=== PATIENT | male | born 1950 | race African-American/Black ===

== ENCOUNTER 2017-09-05 21:48 | Emergency (ER) | payer SELFPAY ==
[~2017-09-05] VITALS: Ht 188 cm; Wt 79.8 kg
--- NOTE | 2017-09-05 22:00 | Emergency Room Report ---
History of Present Illness General Chief Complaint: Chest Pain Source: Patient, EMS Present Illness HPI Patient has by paramedics for initially complaining of chest pain Upon arrival the patient denies any chest pain he reports that he is hungry and that he has not eaten for 3 days Denies any vomiting Denies any abdominal pain denies any fevers or chills Patient has psychiatric history and is on trazodone and Seroquel he reports that he gets his medications from a clinic Denies any homicidal or suicidal thoughts Denies any back or flank pain Allergies: Coded Allergies: HALOPERIDOL (Verified Allergy, Unknown, 09/05/17) PENICILLINS (Verified Allergy, Unknown, 09/05/17) Patient History Past Medical History: see triage record Pertinent Family History: none Reviewed Nursing Documentation: PMH: Agreed; PSxH: Agreed Nursing Documentation-PMH Hx Cardiac Problems: Yes - CHF Hx Hypertension: Yes Hx Diabetes: Yes Review of Systems All Other Systems: negative except mentioned in HPI Physical Exam Vital Signs Date Time Temp Pulse Resp B/P (MAP) Pulse Ox O2 Delivery O2 Flow Rate FiO2 09/05/17 21:46 98.2 82 18 136/78 96 Room Air 98.2 Sp02 EP Interpretation: reviewed, normal General Appearance: well appearing, no apparent distress Head: normocephalic, atraumatic Eyes: bilateral eye PERRL, bilateral eye EOMI ENT: hearing grossly normal, TMs + canals normal, uvula midline, other - A dentureless Neck: full range of motion, supple, no meningismus, no bony tend Respiratory: lungs clear, normal breath sounds, no rhonchi, no respiratory distress, no retraction, no accessory muscle use Cardiovascular #1: normal peripheral pulses, regular rate, rhythm, no edema, no gallop, no JVD, no murmur Gastrointestinal: normal bowel sounds, non tender, soft, no mass, no organomegaly, non-distended, no guarding, no hernia, no pulsatile mass, no rebound Genitourinary: no CVA tenderness Musculoskeletal: swelling - To his right hand, patient reports that he broke his hand 6 weeks ago Neurologic: oriented x3, responsive, retail key holder III-XII nml as tested, motor strength/ tone normal, sensory intact Psychiatric: mood/affect normal Skin: normal color, no rash, warm/dry, palpation normal Lymphatic: normal inspection, no adenopathy Medical Decision Making Diagnostic Impression: Primary Impression: Chest pain ER Course Patient is a fairly complex patient with multiple differential to consideration including but not limited to cardiac cardiopulmonary and vascular emergencies Patient's description of the pain does not sound necessarily cardiac however given the complaints extensive workup was initiated Patient also was more concerned regarding being hungry and requesting food Patient continues to rest comfortably Baseline blood work is appropriate and patient stable for close outpatient follow-up Labs Test 09/05/17 22:00 White Blood Count 6.6 K/UL (4.8-10.8) Red Blood Count 3.93 M/UL (4.70-6.10) Hemoglobin 11.6 G/DL (14.2-18.0) Hematocrit 35.5 % (42.0-52.0) Mean Corpuscular Volume 90 FL (80-99) Mean Corpuscular Hemoglobin 29.4 PG (27.0-31.0) Mean Corpuscular Hemoglobin Concent 32.5 G/DL (32.0-36.0) Red Cell Distribution Width 13.1 % (11.6-14.8) Platelet Count 218 K/UL (150-450) Mean Platelet Volume 9.0 FL (6.5-10.1) Neutrophils (%) (Auto) 60.2 % (45.0-75.0) Lymphocytes (%) (Auto) 25.4 % (20.0-45.0) Monocytes (%) (Auto) 11.4 % (1.0-10.0) Eosinophils (%) (Auto) 0.9 % (0.0-3.0) Basophils (%) (Auto) 2.1 % (0.0-2.0) Sodium Level 137 MMOL/L (136-145) Potassium Level 4.5 MMOL/L (3.5-5.1) Chloride Level 101 MMOL/L (98-107) Carbon Dioxide Level 28 MMOL/L (21-32) Anion Gap 8 mmol/L (5-15) Blood Urea Nitrogen 15 mg/dL (7-18) Creatinine 1.4 MG/DL (0.55-1.30) Estimat Glomerular Filtration Rate 50.7 mL/min (>60) Glucose Level 254 MG/DL (74-106) Calcium Level 9.2 MG/DL (8.5-10.1) Total Bilirubin 0.4 MG/DL (0.2-1.0) Aspartate Amino Transf (AST/SGOT) 21 U/L (15-37) Alanine Aminotransferase (ALT/SGPT) 24 U/L (12-78) Alkaline Phosphatase 126 U/L (46-116) Total Creatine Kinase 234 U/L (26-308) Creatine Kinase MB 4.1 NG/ML (0.0-3.6) Creatine Kinase MB Relative Index 1.7 Troponin I 0.000 ng/mL (0.000-0.056) Total Protein 7.8 G/DL (6.4-8.2) Albumin 3.3 G/DL (3.4-5.0) Globulin 4.5 g/dL Albumin/Globulin Ratio 0.7 (1.0-2.7) EKG Diagnostic Results Rate: normal Rhythm: NSR ST Segments: no acute changes Rhythm Strip Diag. Results EP Interpretation: yes Rate: 85 Rhythm: NSR, no PVC's, no ectopy Chest X-Ray Diagnostic Results Chest X-Ray Diagnostic Results : Chest X-Ray Ordered: Yes # of Views/Limited/Complete: 1 View Indication: Chest Pain EP Interpretation: Yes Interpretation: no consolidation, no effusion, no pneumothorax Impression: No acute disease Electronically Signed by: Michele Marmolejo DO Last Vital Signs Date Time Temp Pulse Resp B/P (MAP) Pulse Ox O2 Delivery O2 Flow Rate FiO2 09/05/17 21:46 98.2 82 18 136/78 96 Room Air 98.2 Status: improved Disposition: HOME, SELF-CARE Condition: Improved Additional Instructions: Patient is provided with the discharge instructions notified to follow up with primary doctor in the next 2-3 days otherwise return to the er with any worsening symptoms. Please note that this report is being documented using [employer] technology. This can lead to erroneous entry secondary to incorrect interpretation by the dictating instrument. Michele Marmolejo DO September 05, 2017 22:00
[2017-09-05] MEDS: TraZODone 50mg tab ORAL ONE (22:22)
[2017-09-05 22:29] LABS: BASOPHILS % (AUTO) 2.1 % (0.0-2.0); EOSINOPHILS % (AUTO) 0.9 % (0.0-3.0); HEMATOCRIT 35.5 % (42.0-52.0); HEMOGLOBIN 11.6 G/DL (14.2-18.0); LYMPHOCYTES % (AUTO) 25.4 % (20.0-45.0); MEAN CORPUSCULAR VOLUME 90 FL (80-99); MONOCYTES % (AUTO) 11.4 % (1.0-10.0); NEUTROPHILS % (AUTO) 60.2 % (45.0-75.0); PLATELET COUNT 218 K/UL (150-450); RED BLOOD COUNT 3.93 M/UL (4.70-6.10); RED CELL DISTRIBUTION WIDTH 13.1 % (11.6-14.8); WHITE BLOOD COUNT 6.6 K/UL (4.8-10.8)
[2017-09-05 22:31] LABS: ANION GAP 8 mmol/L (5-15); BLOOD UREA NITROGEN 15 mg/dL (7-18); CALCIUM 9.2 MG/DL (8.5-10.1); CARBON DIOXIDE 28 MMOL/L (21-32); CHLORIDE 101 MMOL/L (98-107); CREATININE 1.4 MG/DL (0.55-1.30); POTASSIUM 4.5 MMOL/L (3.5-5.1); SODIUM 137 MMOL/L (136-145)
[2017-09-05 22:44] LABS: ALANINE AMINOTRANSFERASE 24 U/L (12-78); ALBUMIN 3.3 G/DL (3.4-5.0); ALBUMIN/GLOBULIN RATIO 0.7 (1.0-2.7); ALKALINE PHOSPHATASE 126 U/L (46-116); ASPARTATE AMINO TRANSFERASE 21 U/L (15-37); BILIRUBIN,TOTAL 0.4 MG/DL (0.2-1.0); CKMB 4.1 NG/ML (0.0-3.6); CREATINE KINASE 234 U/L (26-308)
[2017-09-06 01:21] VITALS: BP 136/78
--- NOTE | 2017-09-06 10:41 | Diagnostic Imaging Report ---
Indication: Chest pain Comparison: None A single view chest radiograph was obtained. Findings: There is pleural calcification present on the right side. Small focus of calcium also present and suspected at the left lung base. No infiltrate seen. Lung volumes are low. Heart size is normal. Bones are unremarkable. IMPRESSION: Pleural cast patient noted bilaterally nonspecific in nature.
--- NOTE | 2017-09-06 14:02 | Cardiology Report ---
APPROVED REPORT EKG Measurement Heart [id number] Normal sinus rhythm Normal ECG
== END 2017-09-06 02:07 | disposition home or self-care (01) ==
LOC: EDBD 21:48 → EMR 22:00
DX: R07.9 Chest pain, unspecified (principal); E11.9 Type 2 diabetes mellitus without complications; I11.0 Hypertensive heart disease with heart failure; I50.9 Heart failure, unspecified; Z88.8 Allergy status to other drugs, medicaments and biological substances; Z88.0 Allergy status to penicillin
CPT/HCPCS: 36415; 71045; 80053; 82550; 82553; 84484; 85025; 93005; 99283

== ENCOUNTER 2017-09-06 03:28 | Emergency (ER) | payer SELFPAY ==
[~2017-09-06] VITALS: Ht 170.2 cm; Wt 90.7 kg
--- NOTE | 2017-09-06 03:32 | Emergency Room Report ---
History of Present Illness General Chief Complaint: Behavioral Complaint Source: Patient Present Illness HPI Patient was recently seen here by myself Patient had complained of chest pain midsternal Extensive workup was negative and patient has been discharged home He now returns with complaints of feeling suicidal Patient does have a history of psychiatric disorder However homicidal and suicidal questions were asked clearly on his last visit at which time he had denied any such ideas Patient again requesting food upon arrival denies any back or flank pain Allergies: Coded Allergies: HALOPERIDOL (Verified Allergy, Unknown, 09/05/17) PENICILLINS (Verified Allergy, Unknown, 09/05/17) Patient History Past Medical History: see triage record Pertinent Family History: none Reviewed Nursing Documentation: PMH: Agreed; PSxH: Agreed Nursing Documentation-PMH Hx Cardiac Problems: Yes - CHF Hx Hypertension: Yes Hx Diabetes: Yes Review of Systems All Other Systems: negative except mentioned in HPI Physical Exam Vital Signs Date Time Temp Pulse Resp B/P (MAP) Pulse Ox O2 Delivery O2 Flow Rate FiO2 09/06/17 03:25 97.8 82 18 157/95 98 Room Air 97.9 Sp02 EP Interpretation: reviewed, normal General Appearance: well appearing, no apparent distress Head: normocephalic, atraumatic Eyes: bilateral eye PERRL, bilateral eye EOMI ENT: hearing grossly normal, TMs + canals normal, uvula midline, other - A dentureless Neck: full range of motion, supple, no meningismus, no bony tend Respiratory: lungs clear, normal breath sounds, no rhonchi, no respiratory distress, no retraction, no accessory muscle use Cardiovascular #1: normal peripheral pulses, regular rate, rhythm, no edema, no gallop, no JVD, no murmur Gastrointestinal: normal bowel sounds, non tender, soft, no mass, no organomegaly, non-distended, no guarding, no hernia, no pulsatile mass, no rebound Genitourinary: no CVA tenderness Musculoskeletal: normal inspection Neurologic: oriented x3, responsive, manager philosophy III-XII nml as tested, motor strength/ tone normal, sensory intact Psychiatric: mood/affect normal - Patient reporting suicidal idea Skin: normal color, no rash, warm/dry, palpation normal Lymphatic: normal inspection, no adenopathy Medical Decision Making Diagnostic Impression: Primary Impression: Behavioral disorder ER Course Patient had fairly extensive testing done just recently Patient will be held for psychiatric consultation Last Vital Signs Date Time Temp Pulse Resp B/P (MAP) Pulse Ox O2 Delivery O2 Flow Rate FiO2 09/06/17 03:25 97.8 82 18 157/95 98 Room Air 97.9 Status: improved Reevaluation Impression Patient resting comfortably. Will have psychiatric consultation in the morning and final disposition Michele Marmolejo DO September 06, 2017 03:32
[2017-09-06 10:30] VITALS: BP 157/95
--- NOTE | 2017-09-06 11:59 | Emergency Room Report ---
Physical Exam Vital Signs Date Time Temp Pulse Resp B/P (MAP) Pulse Ox O2 Delivery O2 Flow Rate FiO2 09/06/17 03:25 97.8 82 18 157/95 98 Room Air 97.9 Medical Decision Making Diagnostic Impression: Primary Impression: Behavioral disorder ER Course 66-year-old male presents ED stating that he wants to hurt himself patient initially seen and evaluated by Dr Marmolejo. Please see his note for full history and physical Patient pending psychiatric evaluation this morning. During my assessment patient appears calm and cooperative asking for food. Good eye contact. No evidence of suicidal or homicidal ideation Patient evaluated by Dr. Jorgensen; she agrees that patient is not a danger to himself and can be safely discharged to home. I agree with her assessment diagnosis - behavioral disorder stable and discharged to home. f/u with PMD. return to ED if symptoms recur/ worsen Last Vital Signs Date Time Temp Pulse Resp B/P (MAP) Pulse Ox O2 Delivery O2 Flow Rate FiO2 09/06/17 10:30 97.8 18 157/95 98 Room Air 97.9 09/06/17 03:25 82 Status: improved Disposition: HOME, SELF-CARE Condition: Stable Referrals: NOT CHOSEN IPA/,REFERRING (PCP) Patient Instructions: Self-Destructive Behavior Yemi Jordan MD September 06, 2017 11:59
== END 2017-09-06 10:30 | disposition home or self-care (01) ==
LOC: EDBD 03:28 → EMR 03:29
DX: F91.9 Conduct disorder, unspecified (principal); E11.9 Type 2 diabetes mellitus without complications; I11.0 Hypertensive heart disease with heart failure; I50.9 Heart failure, unspecified; Z88.0 Allergy status to penicillin; Z88.8 Allergy status to other drugs, medicaments and biological substances
CPT/HCPCS: 99283

== ENCOUNTER 2017-10-03 23:32 | Emergency (ER) | payer SELFPAY ==
[~2017-10-03] VITALS: Ht 185.4 cm; Wt 81.6 kg
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
[2017-10-04 00:33] VITALS: BP 0/0
== END 2017-10-04 00:33 | disposition home or self-care (01) ==
LOC: EDBD 23:32 → EMR 23:47
DX: F91.9 Conduct disorder, unspecified (principal); I11.0 Hypertensive heart disease with heart failure; I50.9 Heart failure, unspecified; E11.9 Type 2 diabetes mellitus without complications; Z88.0 Allergy status to penicillin; Z88.8 Allergy status to other drugs, medicaments and biological substances
CPT/HCPCS: 82962; 99283

== ENCOUNTER 2017-10-15 02:57 | Emergency (ER) | payer SELFPAY ==
[~2017-10-15] VITALS: Ht 188 cm; Wt 79.8 kg
[2017-10-15] MEDS ORDERED: METFORMIN HCL500 M1 ORAL (02:59)
[2017-10-15] MEDS ORDERED: SEROQUEL100 MG ORAL (03:00)
[2017-10-15] MEDS ORDERED: TRAZODONE HCL150 MG ORAL (03:00)
[2017-10-15 03:26] VITALS: BP 134/72
[2017-10-15] MEDS ORDERED: DOXYCYCLINE MO100 MG ORAL (03:35)
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
[2017-10-15 03:46] VITALS: BP 134/72
== END 2017-10-15 04:00 | disposition home or self-care (01) ==
LOC: EDBD 02:57 → EMR 03:16
DX: Z48.02 Encounter for removal of sutures (principal); Z88.0 Allergy status to penicillin; Z88.8 Allergy status to other drugs, medicaments and biological substances; F17.200 Nicotine dependence, unspecified, uncomplicated; I10 Essential (primary) hypertension; E11.9 Type 2 diabetes mellitus without complications
CPT/HCPCS: 99283